=== PATIENT | female | born 1970 | race Caucasian/White ===

== ENCOUNTER 2018-03-06 13:45 | Emergency (ER) | payer MEDICAID ==
[~2018-03-06] VITALS: Ht 157.5 cm; Wt 60.3 kg
[2018-03-06 16:20] VITALS: BP 142/84
== END 2018-03-06 16:21 | disposition home or self-care (01) ==
LOC: ED 13:45
DX: K14.0 Glossitis (principal); R05 Cough

== ENCOUNTER 2018-05-25 11:41 | Emergency (ER) | payer MEDICAID ==
[~2018-05-25] VITALS: Ht 149.9 cm; Wt 59.4 kg
[2018-05-25 11:50] VITALS: Ht 149.9 cm; Wt 59.4 kg
[2018-05-25 13:53] LABS: BASOPHIL % 0.5 % (0-2); PLATELET COUNT 209 x10^3mcL (130-400); RED CELL DISTRIBUTION WIDTH 12.3 % (11.5-14.5)
[2018-05-25 13:59] LABS: CALCIUM 9.2 mg/dL (8.5-10.1); CARBON DIOXIDE 27.7 mmol/L (21-32); CHLORIDE SERUM 103 mmol/L (98-107); CREATININE SERUM 0.7 mg/dL (0.6-1.0); GFR1 > 60 mL/min; GLUCOSE SERUM 119 mg/dL (74-106); POTASSIUM SERUM 3.8 mmol/L (3.5-5.1); SODIUM SERUM 139 mmol/L (136-145); microscopic required? YES; urine erythrocyte NEGATIVE (NEGATIVE)
[2018-05-25 18:12] VITALS: BP 146/88
== END 2018-05-25 18:12 | disposition home or self-care (01) ==
LOC: ED 11:41
PROVIDERS: Emergency Medicine
DX: R30.9 Painful micturition, unspecified (principal); R10.2 Pelvic and perineal pain; F41.9 Anxiety disorder, unspecified; R10.9 Unspecified abdominal pain
CPT/HCPCS: 36415; 87491; 87591; J1885

== ENCOUNTER 2018-08-02 14:44 | Emergency (ER) | payer MEDICAID ==
[~2018-08-02] VITALS: Ht 154.9 cm; Wt 64.4 kg
[2018-08-02 14:51] VITALS: Ht 154.9 cm; Wt 64.4 kg
[2018-08-02 16:04] LABS: BASOPHIL % 0.6 % (0-2); PLATELET COUNT 200 x10^3mcL (130-400); RED CELL DISTRIBUTION WIDTH 13.1 % (11.5-14.5)
[2018-08-02 16:44] VITALS: BP 133/74
== END 2018-08-02 16:44 | disposition home or self-care (01) ==
LOC: ED 14:44
PROVIDERS: Emergency Medicine
DX: N93.8 Other specified abnormal uterine and vaginal bleeding (principal); F41.9 Anxiety disorder, unspecified
CPT/HCPCS: 36415

== ENCOUNTER 2019-10-06 10:37 | Emergency (ER) | payer MEDICAID ==
[~2019-10-06] VITALS: Ht 147.3 cm; Wt 65.4 kg
[2019-10-06 10:41] VITALS: Ht 147.3 cm; Wt 65.4 kg
[2019-10-06 11:11] VITALS: BP 134/44
== END 2019-10-06 11:11 | disposition home or self-care (01) ==
LOC: ED 10:37
DX: L25.9 Unspecified contact dermatitis, unspecified cause (principal)

== ENCOUNTER 2020-02-01 07:45 | Emergency (ER) | payer MEDICAID ==
[~2020-02-01] VITALS: Ht 149.9 cm; Wt 72.6 kg
[2020-02-01 07:58] VITALS: BP 132/81; Ht 149.9 cm; Wt 72.6 kg
== END 2020-02-01 08:49 | disposition home or self-care (01) ==
LOC: ED 07:45
DX: R05 Cough (principal); Z20.828 Contact with and (suspected) exposure to other viral communicable diseases
CPT/HCPCS: U0003-CS

== ENCOUNTER 2020-07-26 15:05 | Emergency (ER) | payer MEDICAID ==
[~2020-07-26] VITALS: Ht 152.4 cm; Wt 58.5 kg
[2020-07-26 15:14] VITALS: Ht 152.4 cm; Wt 58.5 kg
[2020-07-26 16:47] LABS: BASOPHIL % 0.9 % (0.2-1.3); PLATELET COUNT 214 x10^3mcL (179-408)
[2020-07-26 17:17] LABS: CALCIUM 8.9 mg/dL (8.5-10.1); CARBON DIOXIDE 25.4 mmol/L (21-32); CHLORIDE SERUM 105 mmol/L (98-107); CREATININE SERUM 0.6 mg/dL (0.6-1.0); GFR1 > 60 mL/min; GLUCOSE SERUM 120 mg/dL (74-106); SODIUM SERUM 142 mmol/L (136-145)
[2020-07-26 17:22] LABS: ALBUMIN 4.2 g/dL (3.4-5.0); ALKALINE PHOSPHATASE 72 U/L (46-116); ALT/SGPT 30 U/L (14-59); AST/SGOT 12 U/L (15-37); BILIRUBIN TOTAL 0.4 mg/dL (0.20-1.00); TOTAL PROTEIN, SERUM 7.2 g/dL (6.4-8.2)
[2020-07-26 18:15] VITALS: BP 128/79
== END 2020-07-26 18:15 | disposition home or self-care (01) ==
LOC: ED 15:05
PROVIDERS: Emergency Medicine
DX: R07.89 Other chest pain (principal); Z90.49 Acquired absence of other specified parts of digestive tract